=== PATIENT | female | born 1985 | race Caucasian/White ===

== ENCOUNTER → 2021-05-18 | Outpatient (CLI) | payer OTHER ==
[2021-05-19 14:10] LABS: HPV 16 Negative (Negative); HPV 18 Negative (Negative); HPV OTHER HR TYPES Negative (Negative)
== END | disposition home or self-care (01) ==
LOC: LAB 17:20 → LAB SHORT 17:20
PROVIDERS: Obstetrics & Gynecology
DX: Z01.419 Encounter for gynecological examination (general) (routine) without abnormal findings (principal)
CPT/HCPCS: 87624; G0123

== ENCOUNTER → 2023-08-09 | Outpatient (CLI) | payer OTHER | LOC: LAB 11:30 → LAB SHORT 11:30 | DX: J02.9 Acute pharyngitis, unspecified (principal); H92.03 Otalgia, bilateral; Z86.2 Personal history of diseases of the blood and blood-forming organs and certain disorders involving the immune mechanism | CPT/HCPCS: 87081 ==

== ENCOUNTER 2023-08-24 07:20 | Inpatient (IN) | payer OTHER ==
[~2023-08-24] VITALS: Ht 162.6 cm; Wt 82.0 kg
[2023-08-24] VITALS (33 sets, daily range): BP systolic 104–155; BP diastolic 55–93
[2023-08-24 08:41] LABS: BASOPHILS ABSOLUTE AUTO 0.03 K/mm3 (0.00-0.23); BASOPHILS PERCENT AUTO 1 % (0-2); EOSINOPHILS PERCENT AUTO 2 % (0-6); Hematocrit 37.4 % (33.0-51.0); Hemoglobin 12.4 g/dL (11.5-16.0); IMMATURE GRAN ABSOLUTE AUTO 0.02 K/mm3 (0.00-0.10); IMMATURE GRAN PERCENT AUTO 0 % (0-1); LYMPHOCYTES ABSOLUTE AUTO 1.25 K/mm3 (0.84-5.20); LYMPHOCYTES PERCENT AUTO 19 % (21-46); MONOCYTES ABSOLUTE AUTO 0.49 K/mm3 (0.16-1.47); MONOCYTES PERCENT AUTO 7 % (4-13); Mean Corpuscular HGB 29.9 pg (26.0-34.0); Mean Corpuscular HGB Conc 33.2 g/dL (31.5-36.5); Mean Corpuscular Volume 90 fL (80-100); Mean Platelet Volume 10.8 fL (9.1-12.4); NEUTROPHILS ABSOLUTE AUTO 4.77 K/mm3 (1.96-9.15); NEUTROPHILS PERCENT AUTO 72 % (41-73); Platelet Count 177 K/mm3 (150-400); RDW Coefficient Variation 14.1 % (11.7-14.2); RDW Standard Deviation 46.8 fL (35.1-46.3); Red Blood Cell Count 4.15 M/mm3 (3.80-5.20); White Blood Cell Count 6.66 K/mm3 (4.00-11.30)
[2023-08-24] MEDS ORDERED: EUTHYROX125 MCG (09:17)
[2023-08-25 04:17] VITALS: BP 106/56
[2023-08-25 06:12] LABS: Hematocrit 35.8 % (33.0-51.0); Hemoglobin 11.9 g/dL (11.5-16.0); Mean Corpuscular HGB 29.8 pg (26.0-34.0); Mean Corpuscular HGB Conc 33.2 g/dL (31.5-36.5); Mean Corpuscular Volume 90 fL (80-100); Mean Platelet Volume 10.7 fL (9.1-12.4); Platelet Count 176 K/mm3 (150-400); RDW Standard Deviation 45.8 fL (35.1-46.3); Red Blood Cell Count 3.99 M/mm3 (3.80-5.20); White Blood Cell Count 9.14 K/mm3 (4.00-11.30)
[2023-08-25 07:44] VITALS: BP 109/57
[2023-08-25] MEDS ORDERED: IBUP800 PO (14:49)
[2023-08-25] MEDS ORDERED: Percocet 5-3251 EACH PO (14:49)
[2023-08-25] MEDS ORDERED: MISO100 PO (14:51)
[2023-08-25 16:51] VITALS: BP 116/65
--- NOTE | 2023-08-25 18:27 | NUR ---
just need to match bands, pt reports needs to hold baby up right after feed due to acid reflux. they are aware we just need to match bands and then can send them home.
== END 2023-08-25 19:05 | disposition home or self-care (01) | DRG 807 ==
LOC: OBS 07:20 → BC 07:20 → OBS 07:42 → BC 07:43
PROVIDERS: ADMIT Advanced Practice Midwife
PROC: 10E0XZZ Delivery of Products of Conception, External Approach (ICD-10-PCS; principal; 2023-08-24)
PROC: 10907ZC Drainage of Amniotic Fluid, Therapeutic from Products of Conception, Via Natural or Artificial Opening (ICD-10-PCS; 2023-08-24)
PROC: 0HQ9XZZ Repair Perineum Skin, External Approach (ICD-10-PCS; 2023-08-24)
PROC: 3E0R3BZ Introduction of Anesthetic Agent into Spinal Canal, Percutaneous Approach (ICD-10-PCS; 2023-08-24)
PROC: 00HU33Z Insertion of Infusion Device into Spinal Canal, Percutaneous Approach (ICD-10-PCS; 2023-08-24)
DX: O99.284 Endocrine, nutritional and metabolic diseases complicating childbirth (principal); Z37.0 Single live birth; E03.9 Hypothyroidism, unspecified; Z85.820 Personal history of malignant melanoma of skin; O70.0 First degree perineal laceration during delivery; Z3A.39 39 weeks gestation of pregnancy
CPT/HCPCS: 36415; 85025; 85027; 86850; 86900; 86901; 86923; A9270; J1885; J2590; J7120

== ENCOUNTER → 2025-01-16 | Outpatient (CLI) | payer OTHER ==
[~2025-01-16] MED LIST: EUTHYROX125 MCG; IBUP800 PO; MISO100 PO; Percocet 5-3251 EACH PO
== END ==
LOC: LAB 07:34 → LAB SHORT 07:34
DX: R23.4 Changes in skin texture (principal); C43.9 Malignant melanoma of skin, unspecified; L81.9 Disorder of pigmentation, unspecified
CPT/HCPCS: 88305

== ENCOUNTER 2025-05-23 09:33 | Day surgery (SDC) | payer OTHER ==
[~2025-05-23] VITALS: Ht 162.6 cm; Wt 70.6 kg
[~2025-05-23 09:33] MED LIST changes: +FentaNYL Citrate 50 MCG/ML 2 ML Injection ONE
[2025-05-23] MEDS ORDERED: HYDROCODONE-AC1 EA19 (09:59)
[2025-05-23] MEDS ORDERED: CeFAZolin Sodium 2,000 MG VIAL ONE (10:19)
[2025-05-23] MEDS ORDERED: Dexamethasone Sod Phos 10 MG/ML 1ML VIAL ONE (11:00)
[2025-05-23] MEDS ORDERED: Ondansetron HCl 2 MG / ML 2ML Vial ONE ×2 (11:00→12:47)
[2025-05-23] MEDS ORDERED: Midazolam HCl 1MG / ML 2ML Vial ONE (11:20)
[2025-05-23] MEDS ORDERED: Tranexamic Acid 100 ML IV ONE (11:31)
[2025-05-23] MEDS ORDERED: Methylergonovine Maleate 0.2MG / ML 1ML Amp ONE (11:45)
--- NOTE | 2025-05-23 12:16 | NUR ---
05/23/25 1216 Johanna Nugent REPORT RECEIVED FROM PIERRE AND RN. PT PLACED ON 10L FACE TENT UPON ARRIVAL TO PACU. PT ASLEEP, HOB FLAT. VSS.
[2025-05-23] MEDS ORDERED: FentaNYL Citrate 50 MCG/ML 2 ML Injection ONE (12:43)
[2025-05-23] MEDS ORDERED: OxyCODONE 5 mg/Acetamin 325 mg TABLET ONE (13:12)
--- NOTE | 2025-05-23 13:14 | NUR ---
05/23/25 1314 Johanna Nugent REPORT RECEIVED FROM [facility]. PT IN RECLINER, AT BEDSIDE. PT REPORTS PAIN 3-4/10, STATES IT IS CRAMPING. PT TOLERATING ORAL FLUIDS AND SNACKS WELL. VSS.
[2025-05-23 13:19] VITALS: BP 112/68
== END 2025-05-23 13:39 | disposition home or self-care (01) ==
LOC: ORSCSDS 09:33
PROVIDERS: Obstetrics & Gynecology
PROC: 10D17ZZ Extraction of Products of Conception, Retained, Via Natural or Artificial Opening (ICD-10-PCS; principal; 2025-05-23 11:00)
DX: O02.1 Missed abortion (principal); J45.909 Unspecified asthma, uncomplicated; E03.9 Hypothyroidism, unspecified; F41.9 Anxiety disorder, unspecified
CPT/HCPCS: 88305; A9270; J0690; J1100; J2210; J2250; J2405; J2704; J3010; J7120